=== PATIENT | female | born 1995 | race African-American/Black ===

== ENCOUNTER 2017-10-09 16:53 | Emergency (ER) | payer OTHER ==
[~2017-10-09] VITALS: Ht 157.5 cm; Wt 59.0 kg
[~2017-10-09 16:53] MED LIST: ACTICIN 5% CREA60 G1 TOP; FLAGYL500 MG PO; NOHOMEMEDICATIONS
[2017-10-09] MEDS ORDERED: PREDNISONE 20 M20 MG PO (17:54)
[2017-10-09] MEDS ORDERED: TESSALON PERLE100 MG PO (17:54)
== END 2017-10-09 18:02 | disposition home or self-care (01) ==
LOC: ER 16:53
DX: J40 Bronchitis, not specified as acute or chronic (principal)

== ENCOUNTER 2017-12-07 18:15 | Emergency (ER) | payer OTHER ==
[~2017-12-07] VITALS: Ht 162.6 cm; Wt 64.9 kg
[~2017-12-07 18:15] MED LIST changes: +PREDNISONE 20 M20 MG PO; +TESSALON PERLE100 MG PO
[2017-12-07 18:54] LABS: URINE BILIRUBIN NEGATIVE (Negative); URINE BLOOD NEGATIVE (Negative); URINE CLARITY CLEAR; URINE COLOR YELLOW; URINE GLUCOSE-RANDOM* NEGATIVE (Negative); URINE KETONES NEGATIVE (Negative); URINE LEUKOCYTES NEGATIVE (Negative); URINE NITRITE NEGATIVE (Negative); URINE PROTEIN (DIPSTICK) NEGATIVE (Negative); URINE UROBILINOGEN 0.2 E.U./dl (0.2-1.0)
[2017-12-07 19:24] LABS: BASOPHILS 0.7 % (0.0-2.0); EOSINOPHILS 0.8 % (0.0-3.0); HEMATOCRIT 41.2 % (37.0-47.0); HEMOGLOBIN 13.4 gm/dL (12.0-15.0); LYMPHOCYTES 25.3 % (24.0-44.0); MCH 26.4 pg (26.0-34.0); MCHC 32.5 g/dL (28.0-37.0); MCV 81.2 fL (80.0-100.0); MONOCYTES 9.2 % (1.0-8.0); PLATELET COUNT 291 thou/uL (150-400); RBC 5.07 mil/uL (4.20-5.00); RDW 16.3 % (10.5-14.5); WBC 9.4 thou/uL (4.0-11.0)
[2017-12-07 19:31] LABS: CALCIUM 9.3 mg/dL (8.5-10.1); CREATININE 0.7 mg/dL (0.6-1.0); POTASSIUM 3.9 mmol/L (3.5-5.1)
[2017-12-07 19:36] LABS: ALBUMIN 3.7 g/dL (3.4-5.0); TOTAL BILIRUBIN 0.2 mg/dL (<0.1-1.0); TOTAL PROTEIN 7.7 g/dL (6.4-8.2)
[2017-12-07] MEDS ORDERED: BENTYL 20 MG TA20 M1 PO (20:52)
== END 2017-12-07 21:09 | disposition home or self-care (01) ==
LOC: ER 18:15
PROVIDERS: Nurse Practitioner Family
DX: R10.9 Unspecified abdominal pain (principal); R11.0 Nausea

== ENCOUNTER 2019-05-14 04:59 | Emergency (ER) | payer OTHER ==
[~2019-05-14] VITALS: Ht 157.5 cm; Wt 67.1 kg
[~2019-05-14 04:59] MED LIST changes: +BENTYL 20 MG TA20 M1 PO
[2019-05-14 05:46] LABS: ABSOLUTE NEUTROPHILS 7.5 thou/uL (1.4-8.2); BASOPHILS 0.3 % (0.0-2.0); EOSINOPHILS 0.8 % (0.0-3.0); HEMATOCRIT 40.6 % (37.0-47.0); HEMOGLOBIN 13.5 gm/dL (12.0-15.0); LYMPHOCYTES 7.8 % (24.0-44.0); MCH 28.3 pg (26.0-34.0); MCHC 33.3 g/dL (28.0-37.0); MCV 85.1 fL (80.0-100.0); MONOCYTES 5.7 % (1.0-8.0); PLATELET COUNT 238 thou/uL (150-400); POLYS 85.4 % (36.0-66.0); RBC 4.77 mil/uL (4.20-5.00); RDW 15.5 % (10.5-14.5); WBC 8.7 thou/uL (4.0-11.0)
[2019-05-14 05:51] LABS: CALCIUM 9.2 mg/dL (8.5-10.1); CREATININE 0.9 mg/dL (0.6-1.0); POTASSIUM 3.5 mmol/L (3.5-5.1)
[2019-05-14 05:58] LABS: ALBUMIN 3.8 g/dL (3.4-5.0); TOTAL BILIRUBIN 0.6 mg/dL (<0.1-1.0); TOTAL PROTEIN 7.5 g/dL (6.4-8.2)
[2019-05-14 07:04] LABS: URINE BILIRUBIN NEGATIVE (Negative); URINE BLOOD 1+ (Negative); URINE CLARITY SL HAZY; URINE COLOR YELLOW; URINE GLUCOSE-RANDOM* NEGATIVE (Negative); URINE KETONES NEGATIVE (Negative); URINE NITRITE-REFLEX NEGATIVE (Negative); URINE PROTEIN (DIPSTICK) NEGATIVE (Negative)
[2019-05-14 07:05] LABS: URINE LEUKOCYTES-REFLEX 2+ (Negative); URINE UROBILINOGEN 0.2 E.U./dl (0.2-1.0)
[2019-05-14 07:13] LABS: CASTS None Seen /LPF (None Seen); SQUAMOUS >10 Many /LPF (0-3)
[2019-05-14 07:14] LABS: BACTERIA-REFLEX 1-9 Few /HPF (None Seen); CRYSTALS None Seen /LPF (None Seen); URINE RBC 0-2 Rare /HPF (0-2)
[2019-05-14 09:49] VITALS: BP 93/72
[2019-05-14] MEDS ORDERED: NORCO 5-325 TA1 EAC1 PO (10:05)
== END 2019-05-14 09:49 | disposition home or self-care (01) ==
LOC: ER 04:59
PROVIDERS: Emergency Medicine
DX: N83.202 Unspecified ovarian cyst, left side (principal); N83.201 Unspecified ovarian cyst, right side; R10.31 Right lower quadrant pain

== ENCOUNTER 2019-10-06 11:56 | Emergency (ER) | payer OTHER ==
[~2019-10-06] VITALS: Ht 157.5 cm; Wt 68.0 kg
[~2019-10-06 11:56] MED LIST changes: +NORCO 5-325 TA1 EAC1 PO
[2019-10-06] MEDS ORDERED: TESSALON PERLE100 MG PO (12:58)
[2019-10-06] MEDS ORDERED: TAMIFLU75 MG PO (12:58)
[2019-10-06 13:13] VITALS: BP 106/74
[2019-10-06] MEDS ORDERED: ONDANSETRON HCL4 M2 PO (13:18)
== END 2019-10-06 14:52 | disposition home or self-care (01) ==
LOC: ER 11:56
DX: J10.1 Influenza due to other identified influenza virus with other respiratory manifestations (principal)